=== PATIENT | female | born 1960 | race Hispanic/Latino ===

== ENCOUNTER 2016-05-30 11:48 | Outpatient (CLI) | payer MEDICAID ==
--- NOTE | 2016-05-31 10:36 | Cat Scan Report ---
CT LUMBAR SPINE WITHOUT CONTRAST: HISTORY: Radiculopathy in thoracolumbar region, back pain. TECHNIQUE: Helical CT with sagittal and coronal reformatted images. COMPARISON: None at this facility. FINDINGS: This exam is slightly limited because the T12-L1 interspace and the superior end of L1 are not included. There has been previous posterior fusion from L3-S1 which generates moderate artifact. The hardware appears intact. No obvious loosening. There is straightening in the normal lordosis. No compression deformity, bone lesion or malalignment is appreciated. Severe Modic degenerative endplate changes are identified at L1-2 with circumferential spurring and near-complete loss of the disc space. [id number] disc space narrowing is identified at the remaining levels. L1-2: No significant abnormality. L2-3: Surgical hardware is noted. No central canal stenosis or high-grade neural foraminal narrowing is appreciated. L3-4: No central canal stenosis or neural foraminal narrowing is appreciated. L4-5: No central canal stenosis or high-grade neural foraminal narrowing is appreciated. L5-S1: There is moderate circumferential spurring and mild facet arthropathy. No central canal stenosis. Bilateral neural foraminal narrowing is estimated at 50%. The left side appears slightly more affected. There are moderate heterotopic calcifications in the posterior soft tissues surrounding the hardware. The paraspinal soft tissues are within normal limits, otherwise. IMPRESSION: Surgical changes, as outlined above, which appear intact. [id number] multilevel lumbar spondylosis. L1-2 and L5-S1 appear to be the most affected levels. There is moderate bilateral neural foraminal narrowing at L5-S1. Heterotopic calcifications in the posterior soft tissues. No acute process is appreciated.
== END 2016-05-30 11:49 | disposition home or self-care (01) ==
LOC: CT 11:48
PROVIDERS: ATTEND Physical Medicine & Rehabilitation
DX: M54.15 Radiculopathy, thoracolumbar region (principal); M47.896 Other spondylosis, lumbar region; M43.27 Fusion of spine, lumbosacral region; M12.88 Other specific arthropathies, not elsewhere classified, other specified site
CPT/HCPCS: 72131